=== PATIENT | female | born 1970 | race Caucasian/White ===

== ENCOUNTER 2016-12-22 19:46 | Emergency (ER) | payer MEDICAID ==
[~2016-12-22 19:46] MED LIST: KLOR-CON M2020 MEQ PO; MAC100 PO
[2016-12-22 23:30] LABS: BASOPHIL % 0.4 % (0-2); PLATELET COUNT 292 x10^3mcL (130-400); RED CELL DISTRIBUTION WIDTH 13.1 % (11.5-14.5)
[2016-12-22 23:32] LABS: CALCIUM 8.5 mg/dL (8.5-10.1); CHLORIDE SERUM 106 mmol/L (98-107); CREATININE SERUM 0.6 mg/dL (0.6-1.0); GFR1 > 60 mL/min; GLUCOSE SERUM 86 mg/dL (74-106); POTASSIUM SERUM 3.1 mmol/L (3.5-5.1); SODIUM SERUM 140 mmol/L (136-145)
[2016-12-22 23:36] LABS: ALKALINE PHOSPHATASE 113 U/L (46-116); ALT/SGPT 27 U/L (14-59); AST/SGOT 25 U/L (15-37); BILIRUBIN TOTAL 0.2 mg/dL (0.20-1.00); CHOLESTEROL 193 mg/dL (<200); CHOLESTEROL/HDL RATIO 3.7; HDL CHOLESTEROL 52 mg/dL (40-60); LIPASE 86 IU/L (73-393); TRIGLYCERIDES 98 mg/dL (<150)
[2016-12-22 23:37] LABS: ALBUMIN 3.2 g/dL (3.4-5.0)
[2016-12-22 23:56] LABS: FREE T4 1.18 ng/dL (0.76-1.46); FREE THYROXINE INDEX 3.4 ug/dL (1.4-4.5); T4(THYROXINE) 9.7 ug/dL (4.7-13.3)
[2016-12-23 00:03] LABS: T3 TOTAL 1.12 ng/mL
[2016-12-23 00:12] VITALS: BP 123/89
== END 2016-12-23 00:12 | disposition home or self-care (01) ==
LOC: ED 19:46
PROVIDERS: Specialist
DX: G44.209 Tension-type headache, unspecified, not intractable (principal); R55 Syncope and collapse; F41.9 Anxiety disorder, unspecified; G47.00 Insomnia, unspecified; I10 Essential (primary) hypertension; E11.9 Type 2 diabetes mellitus without complications; Z98.890 Other specified postprocedural states
CPT/HCPCS: 36415; 83880; 84439; Q0092

== ENCOUNTER 2017-04-28 19:00 | Emergency (ER) | payer MEDICAID ==
[~2017-04-28] VITALS: Ht 162.6 cm; Wt 69.4 kg
[2017-04-28 19:08] VITALS: Ht 162.6 cm; Wt 69.4 kg
[2017-04-28 21:12] VITALS: BP 132/75
== END 2017-04-28 21:12 | disposition home or self-care (01) ==
LOC: ED 19:00
DX: B07.9 Viral wart, unspecified (principal); F41.9 Anxiety disorder, unspecified; I10 Essential (primary) hypertension; E11.9 Type 2 diabetes mellitus without complications

== ENCOUNTER 2017-05-04 08:54 | Emergency (ER) | payer MEDICAID ==
[~2017-05-04] VITALS: Ht 149.9 cm; Wt 65.1 kg
[2017-05-04 09:06] VITALS: Ht 149.9 cm; Wt 65.1 kg
[2017-05-04 09:55] VITALS: BP 107/76
== END 2017-05-04 10:05 | disposition home or self-care (01) ==
LOC: ED 08:54
DX: B34.9 Viral infection, unspecified (principal); I10 Essential (primary) hypertension; E11.9 Type 2 diabetes mellitus without complications
CPT/HCPCS: 87804

== ENCOUNTER 2017-11-22 16:35 | Emergency (ER) | payer MEDICAID ==
[~2017-11-22] VITALS: Ht 157.5 cm; Wt 65.3 kg
[2017-11-22 16:56] VITALS: Ht 157.5 cm; Wt 65.3 kg
[2017-11-22 20:01] VITALS: BP 128/88
== END 2017-11-22 20:01 | disposition home or self-care (01) ==
LOC: ED 16:35
DX: J02.9 Acute pharyngitis, unspecified (principal); I10 Essential (primary) hypertension; E11.9 Type 2 diabetes mellitus without complications; Z98.890 Other specified postprocedural states

== ENCOUNTER 2017-12-05 15:04 | Emergency (ER) | payer MEDICAID ==
[~2017-12-05] VITALS: Ht 142.2 cm; Wt 65.8 kg
[2017-12-05 15:18] VITALS: BP 121/76; Ht 142.2 cm; Wt 65.8 kg
== END 2017-12-05 16:53 | disposition home or self-care (01) ==
LOC: ED 15:04
DX: K08.89 Other specified disorders of teeth and supporting structures (principal)

== ENCOUNTER 2018-04-13 15:43 | Emergency (ER) | payer MEDICAID ==
[~2018-04-13] VITALS: Ht 154.9 cm; Wt 66.7 kg
[2018-04-13 16:15] VITALS: Ht 154.9 cm; Wt 66.7 kg
[2018-04-13 18:12] VITALS: BP 113/77
== END 2018-04-13 18:12 | disposition home or self-care (01) ==
LOC: ED 15:43
DX: J06.9 Acute upper respiratory infection, unspecified (principal); I10 Essential (primary) hypertension; E11.9 Type 2 diabetes mellitus without complications; Z98.890 Other specified postprocedural states

== ENCOUNTER 2018-09-26 12:56 | Emergency (ER) | payer MEDICAID ==
[~2018-09-26] VITALS: Ht 152.4 cm; Wt 67.6 kg
[2018-09-26 13:04] VITALS: Ht 152.4 cm; Wt 67.6 kg
[2018-09-26 13:58] VITALS: BP 113/77
== END 2018-09-26 13:58 | disposition home or self-care (01) ==
LOC: ED 12:56
DX: L30.9 Dermatitis, unspecified (principal); I10 Essential (primary) hypertension; E11.9 Type 2 diabetes mellitus without complications; Z98.890 Other specified postprocedural states